=== PATIENT | male | born 1960 | race African-American/Black ===

== ENCOUNTER 2016-11-29 14:45 | Inpatient (IN) | payer MEDICARE, OTHER ==
--- NOTE | ~2016-11-29 | EKG ---
PATIENT: RACH HERNANDEZ UNIT #: [id number] Ventricular Rate: 107 BPM Atrial Rate: 107 BPM P-R Interval: 130 ms QRS Duration: 80 ms Q-T Interval: 342 ms QTC Calculation(Bezet): 456 ms P Bethel: 42 degrees Calculated R Bethel: 31 degrees Calculated T Bethel: 31 degrees Diagnosis Line: Sinus tachycardia Diagnosis Line: Minimal voltage criteria for LVH, may be normal Diagnosis Line: variant Diagnosis Line: Borderline ECG Diagnosis Line: When compared with ECG of 29-NOV-2016 19:18, Diagnosis Line: (unconfirmed) Diagnosis Line: No significant change was found Diagnosis Line: Confirmed by LEDY HAMILTON MD ([id number]) on Diagnosis Line: 11/29/2016 10:57:11 PM INTERPRETING MD: RUMA
--- NOTE | ~2016-11-29 | CR72 ---
[facility] A Service of [facility] RADIOLOGY TEXT RESULTS PATIENT: RACH HERNANDEZ LOCATION: [place] [id number] : 58 UNIT #: [id number] AGE: [address]: Jenae Sewell MD SEX: M ORDER DR: [id number] [facility] [address]. [place], [place] [address] [id number] I MR#: [id number] Acc #: [id number] NAME: RACH HERNANDEZ : 1960 SEX: M STUDY DATE/TIME: 12/01/2016 5:54 UNIT: [facility] ROOM: [facility] STUDY DESCRIPTION: CR Chest Single View Portable Attending Physician: Jenae Sewell M.D. Ordering Physician: Jenae Sewell M.D. Primary Care Physician: Primary Care Physician No MEDICAL IMAGING REPORT This report is preliminary unless electronic signature is present EXAM Portable chest, 12/01 INDICATION Left side chest pain with weakness, nausea and vomiting for 2 days. FINDINGS AP portable chest is compared with 09/26/2016. Lungs are clear. Cardiac and mediastinal contours are stable. Left side coronary stent is present. There is no pneumothorax. IMPRESSION No active disease. Dictated by... Abilio Palomo Jr., M.D. THIS IS AN ELECTRONICALLY VERIFIED REPORT Abilio Palomo Jr., M.D. at 12/01/2016 12:56 PM YADIRA/lobito TD: 12/01/2016 12:51 JOB #: [id number] MEDICAL IMAGING REPORT Page 1 of 1 COPY
--- NOTE | ~2016-11-29 | DS ---
Unit #: [id number] #: [id number] Patient: RACH HERNANDEZ [id number] [address] [address] [id number] I MR#: [id number] NAME: RACH HERNANDEZ. ROOM: 566 Age: 56 Sex: M Admission Date: 11/29/2016 : 1960 Discharge Date: 12/04/2016 Attending Physician: Jenae Sewell M.D. Primary Care Physician: No Primary Care Physician DISCHARGE SUMMARY ADMISSION DIAGNOSES 1. Gastrointestinal bleed. 2. Symptomatic anemia. 3. Chest pain. 4. End-stage renal disease on dialysis Wednesday, Wednesday, Wednesday followed by [facility]. 5. History of coronary artery disease, status post cardiac stent placement, followed by Dr. Mabry. 6. Hypertension. 7. Hyperlipidemia. 8. Diabetes. 9. Human immunodeficiency virus, followed by [facility]. 10. History of seizure. DISCHARGE DIAGNOSES 1. Mild gastritis. 2. Small hiatal hernia. 3. Multifactorial anemia. 4. End-stage renal disease on hemodialysis. 5. Coronary artery disease, status post stent and history of angioplasty on Plavix. 6. Human immunodeficiency virus. 7. Hypertension. 8. Diabetes mellitus. 9. Hyperlipidemia. 10. History of seizure. CONSULTANTS 1. Deisi Rivera M.D., Hematology. 2. Ezekiel Thompson M.D., Nephrology. 3. Leticia Banegas M.D., Cardiology. 4. Edward Biswas M.D., Pulmonary Medicine. 5. [facility]. PROCEDURES 1. EGD with finding of small hiatal hernia and mild gastritis. 2. Colonoscopy: Normal colon to the cecum. 3. Hemodialysis per order of nephrology on November 30, 2016 and December 03, 2016. CONDITION Stable. Unit #: [id number] #: [id number] Patient: RACH HERNANDEZ DISPOSITION Home. DIAGNOSTIC STUDIES LABORATORY: WBC 7.1, hemoglobin 8.2, hematocrit 25.6, platelets 307,000. Sodium 137, potassium 4, chloride 107, CO2 of 27, glucose 182, BUN 36, creatinine 6.8, calcium 8.2. Phosphorous 4.4, magnesium 2.4. HIV RNA less than 20. Hepatitis B surface antigen negative. B12 of 746, ferritin 249. PSA 0.53. Troponin I less than 0.03. Hemoglobin A1c 8.3. IMAGING: Abdominal ultrasound: Impression - cholelithiasis. Portable chest x-ray: Impression - no active disease. DISCHARGE INSTRUCTIONS 1. A 2 g renal diet. 2. Patient is to follow up with Dr. Yogi Mabry in two to three weeks. The patient will need to call and schedule an appointment. 3. Patient is to call and schedule followup appointments with Dr. Thompson, [facility]. Is to keep his regularly scheduled followup appointment at the [facility] for HIV evaluation and management. Patient is also to call and schedule a followup appointment with his primary care physician to be seen in five to seven days. The patient is to follow up with [facility] for hemodialysis on his next scheduled hemodialysis day with hemodialysis orders per Dr. Thompson. DISCHARGE MEDICATIONS 1. Neurontin 100 mg p.o. at bedtime. 2. Zyrtec 10 mg p.o. daily. 3. Diphenhydramine 50 mg p.o. at bedtime. 4. Lidoderm 5% patch two patches topically one to the right hip and one to the right buttock, on for 12 hours and remove for 12 hours. 5. Intelence 200 mg p.o. b.i.d. with breakfast and lunch. 6. Abacavir 300 mg p.o. b.i.d. 7. Epivir 100 mg p.o. daily. 8. BuSpar 7.5 mg p.o. b.i.d. 9. Coreg 25 mg p.o. b.i.d. 10. Amlodipine besylate 10 mg p.o. daily. 11. Crestor 20 mg p.o. daily. 12. Humalog insulin per home sliding scale insulin orders. 13. Lantus 10 units subcutaneous at bedtime. 14. Myfortic 360 mg p.o. b.i.d. 15. Renagel 1600 mg p.o. b.i.d. 16. Aspirin 81 mg p.o. every 24 hours. 17. Plavix 75 mg p.o. daily. 18. Protonix 40 mg p.o. daily. 19. Nephrocaps one p.o. daily. 20. Ascorbic acid 500 mg p.o. daily. 21. Rocaltrol 0.25 mcg p.o. daily. 22. Vitamin D2 at 50,000 units p.o. weekly on Wednesday. HOSPITAL COURSE The patient is a 56-year-old -[place] male who presented to [facility] for evaluation of nausea, vomiting, and diarrhea. Given the patient's past medical history, profound anemia, and suspicion for GI bleed, he was transferred to [facility] and transfused with packed red blood cells. Please refer to Unit #: [id number] #: [id number] Patient: RACH HERNANDEZ history and physical report for complete details. Management of end-stage renal disease: Dr. Thompson was consulted for nephrology and hemodialysis management. Patient was noted to be receiving dialysis at home three times weekly. Hemodialysis orders were written by Dr. Thompson and patient was followed by him throughout the hospital course. Patient's last hemodialysis was December 03, 2016. Per order of Dr. Thompson, if patient is discharged home, his next dialysis should follow his December 02, 2016 dialysis orders. Anemia: The patient underwent EGD and colonoscopy with results as dictated above. There was no evidence of GI bleed on neither EGD nor colonoscopy. The patient's anemia was determined to be multifactorial. Hematology was consulted for evaluation and management of the same. Per review of Dr. Rivera's consultation note, the patient would be given Procrit. He also received Ferrlecit 250 mg IV daily for three days. The patient's B12 was evaluated and found to be normal range at 746. At this time, this patient is stable from a hematologic standpoint and has been cleared for discharge without recommendation for followup with Dr. Rivera at this time. Patient will follow with his established physicians for further evaluation of anemia. Type 2 diabetes mellitus: Uncontrolled. Patient developed hyperglycemia and ultimately required treatment with a non DKA insulin protocol. Patient's blood sugar has returned to acceptable range. The patient will be discharged home on his home insulin regimen with the exception of a decrease in Lantus dose from 20 units subcutaneous at bedtime to 10 units subcutaneous at bedtime. The patient will resume his home Humalog insulin sliding scale orders. The patient is eating and drinking well at this time. Coronary artery disease, status post stent placement on Plavix: The patient was evaluated by cardiology given his history of recent drug-eluting stent. The patient's Brilinta was placed on hold because of severe anemia. Patient was placed on low-dose aspirin which he continued to receive. Patient was ultimately transitioned to Plavix and Brilinta was completely discontinued. The patient has been given a prescription prior to discharge for Plavix. Patient is stable from a cardiac standpoint and has been cleared for discharge with instructions to follow up with his wheat shipper, Dr. Yogi Mabry, in two to three weeks. Mild gastritis with small hiatal hernia: The patient's EGD findings are as dictated above. Patient will be discharged home on renal dose of proton pump inhibitor and the patient has been given a prescription for this as well. He will follow up with his primary care physician in this regard. HIV: The patient is established with the [facility] for HIV monitoring and evaluation as well as medication management. HIV RNA count returned as dictated above. CD4 count has been sent to the reference lab and is pending at this time. Again, the patient is aware and is established at the [facility]. In summary, the patient is awake, alert, oriented x3, tolerating food and fluids well and blood sugar as well as (1) are stable at this time. He has been evaluated by Dr. Johnson of the hospitalist service as the patient's attending physician. The patient has been discharged home with discharge and followup instructions as dictated above. Unit #: [id number] #: [id number] Patient: RACH HERNANDEZ Dictated by... Sheela Brandt A.P.R.N. for Winston Covarrubias/fletcher TD: 12/08/2016 12:53 JOB #: [id number] DISCHARGE SUMMARY Page 1 of 1 X Sheela Brandt APRN X DISCHARGE SUMMARY
--- NOTE | ~2016-11-29 | CO ---
Unit #: [id number] #: [id number] Patient: RACH HERNANDEZ [id number] [address] [place], [place] [address] [id number] I MR#: [id number] NAME: RACH HERNANDEZ. ROOM: [facility] Age: 56 Sex: M Admission Date: 11/29/2016 : 1960 Attending Physician: Jenae Sewell M.D. Primary Care Physician: Kayli Primary Care Physician Consultation Date: 11/30/2016 CONSULTATION REPORT REASON FOR CONSULT Management of end-stage renal disease. HISTORY OF PRESENT ILLNESS Mr. Hernandez is a 56-year-old gentleman well known to our service with a failed kidney transplant and progression to end-stage renal disease currently on home hemodialysis. The patient reports that he was in good shape until earlier this week when he began to experience increasing weakness to the point where he had difficulty walking. On Wednesday, he began to experience an episode of vomiting and had several episodes of vomiting on both Wednesday and Wednesday which, combined with the severe weakness, prompted him to present to the emergency room. There, he was found to have a severely low hemoglobin, prompting admission to the ICU with transfusions. On questioning, the patient reports a history of chronic anemia as well as a history of chronic reflux disease and multiple EGDs in the past along with esophageal stretching. It appears that he underwent a procedure in June of this year with reports of mild esophagitis. It appears he underwent another EGD in August of this year at [facility] with largely unremarkable findings except for benign appearing esophageal stenosis. Of note, also in August, he underwent coronary stenting and was placed on Brilinta. The patient notes he has had several occasions where he has awoken to find blood clots in his bowels in the morning. Except for the presentation episodes of vomiting, he reports he has not been having intermittent vomiting at home. He also denies lower GI disorders including diarrhea. He has had dark stools which he has been attributing to the iron replacement he has been taking. It should be noted that he had a hemoglobin of 9.4 at the dialysis unit earlier this month. 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 He underwent a kidney transplant which failed earlier this year putting him back on hemodialysis. PAST MEDICAL HISTORY Extensive and notable for his FFGS, renal failure and dialysis as above. He also has a history of diabetes and HIV for which he is taking medications. Other issues include hyperlipidemia, hypertension and left-sided sciatica. PAST SURGICAL HISTORY Transplant as well as his recent PCIs for stenting. SOCIAL HISTORY Notable for being a recent smoker. He lives with his . Unit #: [id number] #: [id number] Patient: RACH HERNANDEZ FAMILY HISTORY Heart disease. MEDICATIONS His medication list is expensive and is detailed in his medication list. It appears at the moment his Brilinta has not been restarted. PHYSICAL EXAMINATION GENERAL APPEARANCE: On exam, he looked comfortable, lying mostly supine. He was awake, alert and quite conversant. VITAL SIGNS: At the time of evaluation, the patient's blood pressure was 165/87 and a pulse of 92. His temperature was 98.4 with a T-max of 99.3. His O2 sats were 100%. HEENT: Head was normocephalic and atraumatic. Pupils were equally reactive. Sclerae and conjunctivae were clear. There was no evidence of jaundice. NECK: Supple without adenopathy. There was no jugular venous distention. CHEST: Appeared clear to auscultation. No rales or rhonchi were noted. HEART: Regular rate with a normal S1 and S2. There was a prominent 2/6 systolic ejection murmur heard over the precordium. Additionally, there was an overlay bruit from his vascular access in his left arm. ABDOMEN: Soft. There was an area in his right upper quadrant which he reported painful for some time. No masses or organomegaly could be defined, however. No guarding or rebound was noted. GENITORECTAL: Exam was deferred. EXTREMITIES: No dependent edema. There was no cyanosis or clubbing. No significant joint deformities or effusions were noted. No skin lesions were noted. DIAGNOSTIC STUDIES LABORATORY: His most recent hemoglobin was 7.7 after three transfusions. His white count was 8.0 with a platelet count of 256,000. An INR was 1.1. Chemistries were notable for a sodium of 128 with a potassium of 4.8 and a calcium of 8.1. His albumin was low at 3.1. His blood sugars were quite high and in the six hundreds. Transaminases were normal and his total bilirubin was less than 0.1. IMPRESSION 1. His hemoglobin has dropped approximately 5 g over the course of this month. He has undergone several transfusions and may need additional transfusions going forward. A clear etiology is not currently evident and it appears recent EGDs were not revealing either. In addition to the usual considerations of gastric or esophageal ulcerative lesions would be telangiectasias throughout his GI tract. These may have been exacerbated by the addition of an anticoagulant. He is currently being followed by Surgery and there has been some discussion of pursuing another EGD. 2. End-stage renal disease. The patient, at home, has been running relatively short dialysis treatments three times a week given his residual renal function from his transplant. His sodium is a bit low but is otherwise (1) not particularly remarkable. We may go ahead and pursue dialysis today to clear the schedule tomorrow for any other interventional procedures that might be necessary. 3. Diabetes mellitus. It is noticed blood sugar control has been very poor. This is being addressed by Dr. Flores. 4. HIV. He has been on medications for this. I do not know who he sees for overall management. Unit #: [id number] #: [id number] Patient: RACH HERNANDEZ Dictated by... Ezekiel Thompson M.D. SAY/michelle TD: 12/01/2016 06:58 JOB #: [id number] CONSULTATION REPORT Page 1 of 1 X Ezekiel Thompson Jr, MD X CONSULTATION REPORT
--- NOTE | ~2016-11-29 | OR ---
Unit #: [id number] #: [id number] Patient: RACH HERNANDEZ [id number] [address] [address] [id number] I MR#: [id number] NAME: RACH HERNANDEZ. ROOM: 566 Date of Procedure: 12/03/2016 Admission Date: 11/29/2016 Surgeon: Juice Espinal M.D. : 1960 Attending Physician: Jenae Sewell M.D. Primary Care Physician: Primary Care Physician No OPERATIVE REPORT PREOPERATIVE DIAGNOSES 1. Anemia. 2. Heme-positive stools. POSTOPERATIVE DIAGNOSES 1. Anemia. 2. Heme-positive stools. PROCEDURES PERFORMED 1. Esophagogastroduodenoscopy. 2. Colonoscopy to cecum. ANESTHESIA Monitored anesthesia care. FINDINGS The patient was found on upper endoscopy to have a small hiatal hernia and mild gastritis. On colonoscopy, the patient was found to have normal colon to the cecum. SPECIMENS None. COMPLICATIONS None apparent. CONDITION The patient tolerated the procedure well. INDICATIONS FOR PROCEDURE The patient is a 56-year-old black male, who has a history of renal insufficiency and is on dialysis. He was found to have significant anemia and heme-positive stools. He presents at this time for evaluation by upper and lower endoscopy. DESCRIPTION OF PROCEDURE After obtaining informed consent, the patient was brought to the endoscopy suite and after adequate monitored anesthesia care, had the endoscope placed through the mouth into the upper esophagus under direct vision. It was advanced to the second portion of the duodenum without difficulty with the lumen always in view. The duodenum was normal as was the duodenal bulb. The pylorus opened normally. There was some mild distal gastritis Unit #: [id number] #: [id number] Patient: RACH HERNANDEZ present. On retroflexion back to the GE junction, a small hiatal hernia was seen. No other abnormalities were found in the proximal third, middle third, or incisura. On pulling back above the GE junction, there was no stenosis, stricture, or neoplasm seen. The remaining portion of the esophagus was within normal limits. Laryngeal structures were grossly normal as viewed from above. At this point in time, the colonoscope was placed through the anus and slowly advanced to the level of the cecum without difficulty with the lumen always in view. There was quite a bit of brown thick liquid; however, with washing, we were able to clear out the vast majority of the colon. The cecum was normal as was the ileocecal valve. The ascending colon was normal as was the hepatic flexure, transverse colon, splenic flexure, descending colon, sigmoid colon, and rectum. On retroflexing in the rectum to the anorectal junction, the patient was found to have no significant abnormality. The scope was removed without difficulty. The patient tolerated the procedure well and went from the endoscopy suite to the recovery area in stable condition. Dictated by... Winston Whalen/richard TD: 12/04/2016 02:49 JOB #: [id number] CC: [facility] OPERATIVE REPORT Page 1 of 1 X Juice Espinal MD X PROCEDURE OPERATIVE NOTE
--- NOTE | ~2016-11-29 | CO ---
Unit #: [id number] #: [id number] Patient: RACH HERNANDEZ [id number] [address] [address] [id number] I MR#: [id number] NAME: RACH HERNANDEZ. [facility] Age: 56 Sex: M Admission Date: 11/29/2016 : 1960 Attending Physician: Jenae Sewell M.D. Primary Care Physician: No Primary Care Physician CONSULTATION REPORT CHIEF COMPLAINT Anemia on dialysis, focal segmental glomerulosclerosis and multiple medical problems. HISTORY OF PRESENT ILLNESS This is a 56-year-old male who developed end-stage renal disease during 2001 secondary to FSGS. He has a renal transplant. He is now back on dialysis. Last couple of days he has nausea and vomiting symptoms, presyncope and his hemoglobin is low. As a result he came to hospital. CBC showed WBC 8.0, hemoglobin 6.2, MCV 85 and platelets 256. He has received four units of PRBCs. At present he still is receiving. Patient has FSGS leading to multiple complications. Now he has a rejection of his renal transplant. At present he is comfortable. He received intravenous iron and Aranesp during dialysis. The last (1) Wednesday. REVIEW OF SYSTEMS CONSTITUTIONAL: Presyncope, nausea, vomiting. EYES: No visual symptoms. EARS, NOSE AND THROAT: There is no runny nose or sore throat or difficulty hearing. CARDIOVASCULAR: No chest pain. No shortness of breath. No palpitations. No orthopnea. No PND. RESPIRATORY: No cough. No wheezing. No hemoptysis. GASTROINTESTINAL: No diarrhea, constipation, hematochezia or melena. GENITOURINARY: No urinary frequency, hesitancy or urgency. No blood in the urine. MUSCULOSKELETAL: No muscle or joint pain. NEUROLOGIC: No headache. No numbness or tingling. No weakness. No seizure. PSYCHIATRIC: No anxiety, depression or mood disturbance. ENDOCRINE: No excessive urination or thirst. DERMATOLOGIC: No rash or change in the skin. ALLERGIC/IMMUNOLOGIC: No symptoms. HEMATOLOGIC/LYMPHATIC: Denies any symptoms. PAST MEDICAL HISTORY Unit #: [id number] #: [id number] Patient: RACH HERNANDEZ 1. FSGS. 2. Renal transplant failure, now back on dialysis. 3. HIV, stable. 4. CAD. 5. Stent. ALLERGIES None. SOCIAL HISTORY He has been smoking one pack per week for 40 years, denies alcohol abuse. He works at the [employer]. FAMILY HISTORY Multiple members of the family from grandmother on father's side have FSGS. His daughter at the age of 25 with this disease. PAST SURGICAL HISTORY Bilateral hip replacement because of the immunosuppressant. PHYSICAL EXAMINATION VITAL SIGNS: Afebrile, pulse 95, respiratory rate 15, O2 sat 100%, blood pressure 160/80. GENERAL: Patient is comfortable. ECOG is 0. The patient is pleasant. HEENT: Moist mucosa. Pupils equally reactive to light. Extraocular muscles intact. Sclerae anicteric. No obvious bleeding from nasal mucosa or oral mucosa. Scalp normal. Hearing normal. NECK: No JVD. No lymphadenopathy. LYMPHATIC/HEMATOLOGIC: There is no palpable adenopathy in the neck, axilla or inguinal area. CARDIOVASCULAR: S1, S2. Regular rate and rhythm. No S3 or S4. RESPIRATORY: Chest symmetrical, normal. Clear to auscultation bilaterally. No wheezes, no rales, no rhonchi. No dullness to percussion. ABDOMEN/GASTROINTESTINAL: Abdomen is soft, nontender, nondistended. No hepatosplenomegaly. EXTREMITIES: There is no clubbing, no cyanosis, no edema. No varicose veins. NEUROLOGICAL: Patient is alert, awake and oriented x3. Cranial nerves II-XII are intact. Sensory grossly intact. Motor is 4/5 in all four extremities. Gait is normal. Station is normal. Language is normal. Memory is normal. DTRs +2 in all four extremities. MUSCULOSKELETAL: No joint swelling. No bony tenderness. No muscle tenderness. SKIN: No petechiae, no rash, no ecchymosis. PSYCHIATRIC: No anxiety. No delusions or hallucinations. There is no agitation. Eye contact is normal. Affect is appropriate. There is no flight of ideas. DIAGNOSTIC STUDIES LABORATORY: Creatinine is 6.4, LFTs normal. ASSESSMENT AND PLAN 1. Anemia, it is multifactorial in nature. He is on dialysis due to transplant failure. He also is on immunosuppressive agent. He is receiving PRBC transfusion. I will give him a dose of Procrit. Will check iron studies and B12. 2. Other conditions he has: a. Focal segmental glomerulosclerosis. Unit #: [id number] #: [id number] Patient: RACH HERNANDEZ b. Renal failure. c. Renal transplant, now transplant failure. d. Human immunodeficiency virus. e. Coronary artery disease. f. Stent. g. Diabetes. h. Hypertension. All of these are stable. He is comfortable. I will follow up with multiple physicians. Dictated by... Deisi Rivera M.D. RAGHAV/asia TD: 11/30/2016 16:43 JOB #: [id number] CONSULTATION REPORT Page 1 of 1 X Deisi Rivera MD X CONSULTATION REPORT
--- NOTE | ~2016-11-29 | HP ---
Unit #: [id number] #: [id number] Patient: RACH HERNANDEZ [id number] [address] [address] [id number] I MR#: [id number] NAME: RACH HERNANDEZ. ROOM: [facility] Age: 56 Sex: M Admission Date: 11/29/2016 : 1960 Attending Physician: Letty Flores M.D. HISTORY AND PHYSICAL CHIEF COMPLAINT Nausea, vomiting, diarrhea. HISTORY OF PRESENT ILLNESS The patient is a 56-year-old male with a past medical history of chronic anemia, end-stage renal disease, coronary artery disease, hypertension, hyperlipidemia, diabetes, HIV, and seizure, who presented to [facility] for evaluation of the above. The patient states that he has been feeling increasingly generally weak for the past week. He has felt like he would "pass out." He states that he has had left-sided chest pain. He has had upper abdominal pain intermittently. He denies any diarrhea. He has had three bouts of nonbloody emesis within the past 24 hours. He is on home dialysis. He typically does dialysis on Wednesday, Wednesday, and Wednesday. His last dialysis was yesterday. Upon arrival in the emergency department at [facility], initial pulse and blood pressure were 117 and 126/78, respectively. He was noted to be Hemoccult positive. A CT of the abdomen and pelvis was done and showed cholelithiasis, uncomplicated, but no acute abnormality. Hemoglobin was noted to be 4.8, creatinine 5.7, and potassium 3.5. He was given 40 mg of Protonix, 4 mg of Zofran, and 4 mg of morphine. One unit of packed red blood cells was ordered. He was transferred to [facility] for admission. PAST MEDICAL HISTORY 1. Admission to [facility] in September 2016 (no records). 2. End-stage renal disease, on dialysis. The patient receives home dialysis Wednesday/Wednesday/Wednesday. His last dialysis was yesterday. He is followed by [facility]. 3. Anxiety and depression. 4. Coronary artery disease, status post stent placement, followed by Dr. Mabry. 5. Chronic anemia. The patient receives iron infusions with the last infusion being on November 23, 2016. 6. Diabetes. 7. Hyperlipidemia. 8. Hypertension. 9. Human immunodeficiency virus. The patient states that his viral load is undetectable. He is not sure what his CD4 count is. He has been taking all of his medications as prescribed. He is followed by [facility]. 10. Seizure. The patient is not on antiepileptic medications, and he is Unit #: [id number] #: [id number] Patient: RACH HERNANDEZ not followed by a neurologist. PAST SURGICAL HISTORY 1. Bilateral hip surgery. 2. EGD and colonoscopy in [place] at [facility]. 3. Cardiac catheterization. 4. Cardiac stent placement. 5. Fistula for dialysis. SOCIAL HISTORY The patient lives with his . He does not smoke or drink. He walks without assistance. His code status is a Full Code. FAMILY HISTORY Notable for his brother having end-stage renal disease, and his mother has diabetes. ALLERGIES Penicillin and sulfa. HOME MEDICATIONS 1. Amlodipine 10 mg daily. 2. Humalog sliding scale. 3. Intelence 200 mg b.i.d. 4. Lantus 20 units at bedtime. 5. Lidoderm patch. 6. Renal caps daily. 7. Vitamin C 500 mg daily. 8. Vitamin D 50,000 units weekly. 9. Zyrtec 10 mg daily. 10. Abacavir 300 mg b.i.d. 11. Aspirin 81 mg daily. 12. Buspirone 7.5 mg b.i.d. 13. Calcitriol 0.25 mcg daily. 14. Carvedilol 25 mg b.i.d. 15. Diphenhydramine 25 mg 2 capsules at bedtime. 16. Gabapentin 100 mg daily. 17. Lamivudine 100 mg daily. 18. Mycophenolic acid 360 mg b.i.d. 19. Rosuvastatin 10 mg daily. 20. Sevelamer 1600 mg b.i.d. REVIEW OF SYSTEMS A complete review of systems is negative except as indicated in the History of Present Illness. The patient states that he has lost about 18 pounds over the past three months. The patient states that his blood sugars have been running high (undetectable). PHYSICAL EXAMINATION VITAL SIGNS: Temperature 99.3, pulse 112, respirations 10, and blood pressure 176/83. GENERAL: Patient is an male who is awake, alert, and in no acute distress. HEENT: Head is atraumatic. Mucous membranes are moist. NECK: Supple. Trachea is midline. CARDIOVASCULAR: Regular rate and rhythm. LUNGS: Clear to auscultation bilaterally with no increased work of breathing. Unit #: [id number] #: [id number] Patient: RACH HERNANDEZ ABDOMEN: Soft. He is mildly tender to palpation in the epigastric area. Bowel sounds are present in all four quadrants. EXTREMITIES: Nontender with no pedal edema. NEUROLOGIC: Patient is awake and alert. He follows commands. PSYCHIATRIC: Mood and affect are normal. Patient is cooperative. SKIN: Skin of examined areas is warm and dry. DIAGNOSTIC STUDIES LABORATORY: Troponin is 0.02. Comprehensive metabolic panel notable for glucose of 116, potassium 3.5, and BUN and creatinine 48 and 5.74, respectively. Amylase is 145 and lipase 81. Complete blood count notable for hemoglobin and hematocrit 4.8 and 14.4, respectively, MCV is 85.3, and RDW 15.3. IMAGING: CT of the abdomen and pelvis shows uncomplicated cholelithiasis and renal transplant in the right pelvis. CARDIOLOGY: EKG shows sinus tachycardia with a rate of 111 beats per minute. ASSESSMENT The patient is a 56-year-old male with: 1. Gastrointestinal bleed. The patient states that he has had endoscopy in [place] within the past year, and they have "never found a source." 2. Symptomatic anemia. The patient's hemoglobin was 4.8. He is currently receiving the first unit of packed red blood cells. 3. Chest pain. The patient has a history of coronary artery disease and is status post stent placement. Initial cardiac enzymes are negative. 4. End-stage renal disease, on home dialysis Wednesday, Wednesday, and Wednesday with last dialysis yesterday, followed by [facility]. 5. History of coronary artery disease, status post cardiac stent placement, followed by Dr. Mabry. 6. Hypertension. 7. Hyperlipidemia. 8. Diabetes. 9. Human immunodeficiency virus followed by [facility]. 10. History of seizure. PLAN 1. Admit to ICU. 2. Clear liquid diet for possible endoscopy. 3. N.p.o. after midnight. 4. Hemoglobin and hematocrit one hour after transfusion and q.6 hours. 5. Iron studies, B12, and folate. 6. Get records from [facility] and from [facility] if possible including endoscopy. 7. Serial cardiac enzymes. 8. Protonix drip at 8 mg/hour. 9. Hold aspirin. 10. Check right upper quadrant ultrasound for further evaluation of right upper quadrant pain and cholelithiasis. 11. P.remily Smith. 12. Consult Dr. Hodge regarding GI bleed. 13. Consult [facility] regarding end-stage renal disease and dialysis needs. Unit #: [id number] #: [id number] Patient: RACH HERNANDEZ 14. Hemoglobin A1c. 15. Low-dose sliding scale insulin with Accu-Cheks. 16. SCDs for DVT prophylaxis. 17. Repeat labs in the morning. 18. Additional workup and consultants based on above. Thirty (30) minutes critical care time spent in the care of this patient (7:30-8:00 p.m.). Dictated by Letty Flores M.D. AW/vale TD: 11/29/2016 20:54 JOB #: [id number] HISTORY AND PHYSICAL Page 1 of 1 X Letty Flores MD X HISTORY AND PHYSICAL
--- NOTE | ~2016-11-29 | HP ---
Unit #: [id number] #: [id number] Patient: RACH HERNANDEZ [id number] [address] [address] [id number] I MR#: [id number] NAME: RACH HERNANDEZ. ROOM: [facility] Age: 56 Sex: M Admission Date: 11/29/2016 : 1960 Attending Physician: Letty Flores M.D. HISTORY AND PHYSICAL CHIEF COMPLAINT Nausea, vomiting, diarrhea. HISTORY OF PRESENT ILLNESS The patient is a 56-year-old male with a past medical history of chronic anemia, end-stage renal disease, coronary artery disease, hypertension, hyperlipidemia, diabetes, HIV, and seizure, who presented to [facility] for evaluation of the above. The patient states that he has been feeling increasingly generally weak for the past week. He has felt like he would "pass out." He states that he has had left-sided chest pain. He has had upper abdominal pain intermittently. He denies any diarrhea. He has had three bouts of nonbloody emesis within the past 24 hours. He is on home dialysis. He typically does dialysis on Wednesday, Wednesday, and Wednesday. His last dialysis was yesterday. Upon arrival in the emergency department at [facility], initial pulse and blood pressure were 117 and 126/78, respectively. He was noted to be Hemoccult positive. A CT of the abdomen and pelvis was done and showed cholelithiasis, uncomplicated, but no acute abnormality. Hemoglobin was noted to be 4.8, creatinine 5.7, and potassium 3.5. He was given 40 mg of Protonix, 4 mg of Zofran, and 4 mg of morphine. One unit of packed red blood cells was ordered. He was transferred to [facility] for admission. PAST MEDICAL HISTORY 1. Admission to [facility] in September 2016 (no records). 2. End-stage renal disease, on dialysis. The patient receives home dialysis Wednesday/Wednesday/Wednesday. His last dialysis was yesterday. He is followed by [facility]. 3. Anxiety and depression. 4. Coronary artery disease, status post stent placement, followed by Dr. Mabry. 5. Chronic anemia. The patient receives iron infusions with the last infusion being on November 23, 2016. 6. Diabetes. 7. Hyperlipidemia. 8. Hypertension. 9. Human immunodeficiency virus. The patient states that his viral load is undetectable. He is not sure what his CD4 count is. He has been taking all of his medications as prescribed. He is followed by [facility]. 10. Seizure. The patient is not on antiepileptic medications, and he is Unit #: [id number] #: [id number] Patient: RACH HERNANDEZ not followed by a neurologist. PAST SURGICAL HISTORY 1. Bilateral hip surgery. 2. EGD and colonoscopy in [place] at [facility]. 3. Cardiac catheterization. 4. Cardiac stent placement. 5. Fistula for dialysis. SOCIAL HISTORY The patient lives with his . He does not smoke or drink. He walks without assistance. His code status is a Full Code. FAMILY HISTORY Notable for his brother having end-stage renal disease, and his mother has diabetes. ALLERGIES Penicillin and sulfa. HOME MEDICATIONS 1. Amlodipine 10 mg daily. 2. Humalog sliding scale. 3. Intelence 200 mg b.i.d. 4. Lantus 20 units at bedtime. 5. Lidoderm patch. 6. Renal caps daily. 7. Vitamin C 500 mg daily. 8. Vitamin D 50,000 units weekly. 9. Zyrtec 10 mg daily. 10. Abacavir 300 mg b.i.d. 11. Aspirin 81 mg daily. 12. Buspirone 7.5 mg b.i.d. 13. Calcitriol 0.25 mcg daily. 14. Carvedilol 25 mg b.i.d. 15. Diphenhydramine 25 mg 2 capsules at bedtime. 16. Gabapentin 100 mg daily. 17. Lamivudine 100 mg daily. 18. Mycophenolic acid 360 mg b.i.d. 19. Rosuvastatin 10 mg daily. 20. Sevelamer 1600 mg b.i.d. REVIEW OF SYSTEMS A complete review of systems is negative except as indicated in the History of Present Illness. The patient states that he has lost about 18 pounds over the past three months. The patient states that his blood sugars have been running high (undetectable). PHYSICAL EXAMINATION VITAL SIGNS: Temperature 99.3, pulse 112, respirations 10, and blood pressure 176/83. GENERAL: Patient is an male who is awake, alert, and in no acute distress. HEENT: Head is atraumatic. Mucous membranes are moist. NECK: Supple. Trachea is midline. CARDIOVASCULAR: Regular rate and rhythm. LUNGS: Clear to auscultation bilaterally with no increased work of breathing. Unit #: [id number] #: [id number] Patient: RACH HERNANDEZ ABDOMEN: Soft. He is mildly tender to palpation in the epigastric area. Bowel sounds are present in all four quadrants. EXTREMITIES: Nontender with no pedal edema. NEUROLOGIC: Patient is awake and alert. He follows commands. PSYCHIATRIC: Mood and affect are normal. Patient is cooperative. SKIN: Skin of examined areas is warm and dry. DIAGNOSTIC STUDIES LABORATORY: Troponin is 0.02. Comprehensive metabolic panel notable for glucose of 116, potassium 3.5, and BUN and creatinine 48 and 5.74, respectively. Amylase is 145 and lipase 81. Complete blood count notable for hemoglobin and hematocrit 4.8 and 14.4, respectively, MCV is 85.3, and RDW 15.3. IMAGING: CT of the abdomen and pelvis shows uncomplicated cholelithiasis and renal transplant in the right pelvis. CARDIOLOGY: EKG shows sinus tachycardia with a rate of 111 beats per minute. ASSESSMENT The patient is a 56-year-old male with: 1. Gastrointestinal bleed. The patient states that he has had endoscopy in [place] within the past year, and they have "never found a source." 2. Symptomatic anemia. The patient's hemoglobin was 4.8. He is currently receiving the first unit of packed red blood cells. 3. Chest pain. The patient has a history of coronary artery disease and is status post stent placement. Initial cardiac enzymes are negative. 4. End-stage renal disease, on home dialysis Wednesday, Wednesday, and Wednesday with last dialysis yesterday, followed by [facility]. 5. History of coronary artery disease, status post cardiac stent placement, followed by Dr. Mabry. 6. Hypertension. 7. Hyperlipidemia. 8. Diabetes. 9. Human immunodeficiency virus followed by [facility]. 10. History of seizure. PLAN 1. Admit to ICU. 2. Clear liquid diet for possible endoscopy. 3. N.p.o. after midnight. 4. Hemoglobin and hematocrit one hour after transfusion and q.6 hours. 5. Iron studies, B12, and folate. 6. Get records from [facility] and from [facility] if possible including endoscopy. 7. Serial cardiac enzymes. 8. Protonix drip at 8 mg/hour. 9. Hold aspirin. 10. Check right upper quadrant ultrasound for further evaluation of right upper quadrant pain and cholelithiasis. 11. P.remily Smith. 12. Consult Dr. Hodge regarding GI bleed. 13. Consult [facility] regarding end-stage renal disease and dialysis needs. Unit #: [id number] #: [id number] Patient: RACH HERNANDEZ 14. Hemoglobin A1c. 15. Low-dose sliding scale insulin with Accu-Cheks. 16. SCDs for DVT prophylaxis. 17. Repeat labs in the morning. 18. Additional workup and consultants based on above. Thirty (30) minutes critical care time spent in the care of this patient (7:30-8:00 p.m.). Dictated by... Winston Stanford/vale TD: 11/29/2016 20:54 JOB #: [id number] ADDENDUM PAST MEDICAL HISTORY (CONTINUED) 2. 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 He is still on immunosuppression with mycophenolic acid. PAST SURGICAL HISTORY (CONTINUED) 6. Patient is status post kidney transplant. PLAN (CONTINUED) 19. Will check HIV and viral load. 20. 1. Dictated by Winston Stanford/vale TD: 11/29/2016 21:26 JOB #: [id number] CC: [place]/invision Please Delete HISTORY AND PHYSICAL Page 1 of 1 X Letty Flores MD HISTORY AND PHYSICAL
--- NOTE | ~2016-11-29 | EKG ---
PATIENT: RACH HERNANDEZ UNIT #: [id number] Ventricular Rate: 96 BPM Atrial Rate: 96 BPM P-R Interval: 150 ms QRS Duration: 98 ms Q-T Interval: 358 ms QTC Calculation(Bezet): 452 ms P Billings: 53 degrees Calculated R Billings: 44 degrees Calculated T Billings: 54 degrees Diagnosis Line: Normal sinus rhythm Diagnosis Line: Moderate voltage criteria for LVH, may be normal Diagnosis Line: variant Diagnosis Line: Borderline ECG Diagnosis Line: When compared with ECG of 29-NOV-2016 19:20, Diagnosis Line: No significant change was found Diagnosis Line: Confirmed by LEDY HAMILTON MD ([id number]) on Diagnosis Line: 12/02/2016 10:49:03 AM INTERPRETING ROZ HENDRIX
--- NOTE | ~2016-11-29 | CO ---
Unit #: [id number] #: [id number] Patient: RACH HERNANDEZ [id number] [address] [place], [place] [address] [id number] I MR#: [id number] NAME: RACH HERNANDEZ. ROOM: 566 Age: 56 Sex: M Admission Date: 11/29/2016 : 1960 Attending Physician: Jenae Sewell M.D. Consultation Date: 12/02/2016 CONSULTATION REPORT REASON FOR CONSULT ICU management. CHIEF COMPLAINT Nausea, vomiting, and diarrhea. HISTORY OF PRESENT ILLNESS This is a very pleasant 56-year-old gentleman with a past medical history significant for chronic anemia, end-stage renal disease, coronary artery disease, hypertension, hyperlipidemia, HIV, and seizure, who presented to the emergency room with nausea, vomiting, and diarrhea. Patient complained that he was feeling profoundly and progressively weak for the last few days. He had a presyncopal episode and almost passed out. He also was complaining of chest pain and shortness of breath. Patient also noted that he had multiple bouts of nonbloody emesis prior to admission. He is on dialysis three times a week, and he is being compliant with that. In the emergency room, his heart rate was elevated, and his hemoglobin was noted to be at 4.8. PAST MEDICAL HISTORY 1. End-stage renal disease. 2. Anxiety. 3. Depression. 4. Coronary artery disease. 5. Chronic anemia. 6. Diabetes. 7. Hyperlipidemia. 8. Hypertension. 9. Human immunodeficiency virus. 10. Seizure. PAST SURGICAL HISTORY 1. Bilateral hip surgery. 2. EGD and colonoscopy. 3. Cardiac catheterization. 4. Cardiac stent placement. 5. Fistula for dialysis. SOCIAL HISTORY Patient lives with his . He does not smoke or drink. He walks without assistance. His code status is Full. Unit #: [id number] #: [id number] Patient: RACH HERNANDEZ FAMILY HISTORY End-stage renal disease, diabetes, and hypertension. ALLERGIES Penicillin and sulfa. HOME MEDICATIONS 1. Norvasc. 2. Lantus. 3. Vitamin C. 4. Aspirin. 5. Buspirone. 6. Human immunodeficiency virus treatment. 7. Rosuvastatin. REVIEW OF SYSTEMS A 12-point review of systems was obtained and was negative except for what was mentioned in the History of Present Illness. PHYSICAL EXAMINATION GENERAL: Patient does not appear in acute distress, but he looks weak and fatigued. HEENT: Atraumatic and normocephalic. PERRLA. EOMI. NECK: Supple. No JVD. No lymphadenopathy. CHEST: Clear to auscultation bilaterally. HEART: S1 and S2. No murmur, gallops, or rubs. ABDOMEN: Soft and nontender. Bowel sounds positive. No hepatosplenomegaly. EXTREMITIES: No edema or cyanosis. SKIN: No rashes. CENTRAL NERVOUS SYSTEM: Awake, alert, and oriented x3. No focal motor or sensory deficits. DIAGNOSTIC STUDIES LABORATORY: Creatinine 6.1 and calcium 7.2. White blood count is 7.1 and platelets 230,000. IMAGING: Noted and reviewed by me. ASSESSMENT 1. Acute on chronic anemia likely due to gastrointestinal bleeding. 2. Symptomatic anemia. 3. Chest pain. 4. End-stage renal disease. 5. Hypertension. 6. Diabetes. 7. Hyperlipidemia. 8. Human immunodeficiency virus. PLAN 1. Patient was resuscitated with IV fluid and blood products. His hemoglobin currently is stable. His Plavix was restarted, and we need to monitor his hemoglobin very closely. 2. Patient will need GI evaluation at some point when he is more stable and appropriate. 3. Will watch patient off antibiotics. 4. Keep patient on Protonix. 5. Protonix drip. Unit #: [id number] #: [id number] Patient: RACH HERNANDEZ 6. Iron infusion as needed. 7. SCDs for DVT prophylaxis. I would like to thank Dr. Johnson for allowing me to be part of this patient's care. Dictated by... Winston Gonzalez TD: 12/02/2016 20:25 JOB #: [id number] CONSULTATION REPORT Page 1 of 1 X ART PRIETO MD CONSULTATION REPORT
--- NOTE | ~2016-11-29 | FU ---
[facility] Nutrition Therapy DATE: 12/04/16 Patient: RACH HERNANDEZ Physician: CHRISSY Address: [address] [place] [address] RD Room/Bed: [address] [place] [address], Zip: [place] [address] Admit Date: 11/29/16 Date of : 58 Height: 6 1 Weight: 172 78.2 NUTRITION MONITORING/FOLLOW-UP: Reason: follow-up 56 y/o male admitted for anemia, n/v/d Anthropometrics: ht: 6'1" wt: 172# (78.2 kg) BMI 22 -Admit weight 72.7 kg Labs: BUN 36, Creat 6.8, Ca__ 8.2, Alb 3.3, accuchecks 182, HgbA1c 8.3, GFR 9.5 Meds: protonix, plavix, lipitor, novolog, levemir, intelence, coreg I&O's: 1590/303 Skin: no breakdown, no edema Estimated Nutrition Needs: Increased due to ESRD on HD Assessment: Chart reviewed, events noted. Pt seen for follow-up. Pt was preparing to D/C home at time of visit, so RD was unable to interview pt. RD internal affairs commander provided pt with written diet education. Pt and pt's stated he does not want to follow the renal diet at home, but RD internal affairs commander left written diet education with the pt's . Pt is being d/c'd and leaving for home today. RD will remain available. Dx: Inadequate protein-energy intake r/t increased protein-energy needs on HD, clinical condition AEB liquid diet with diet soda and water only. -RESOLVED Intervention: 1. Renal diet 2. Renal diet education Monitoring, Evaluation and Goals: 1. Oral intake; tolerate >50-75% of meals once diet advances -UNMEASURED 2. Improve labs; glucose, electrolytes, BUN, creat, GFR -NOT MET 3. Weight; prevent weight loss -IN PROGRESS Recommendations: 1. Continue to follow renal and consistent carbohydrate diet at home. Encourage compliance of diet Consult RD with any further nutritional needs. [facility] Nutrition Therapy DATE: 12/04/16 Patient: RACH HERNANDEZ Physician: CHRISSY Address: [address] [place] [address] RD Room/Bed: [address] [place] [address], Zip: [place] [address] Admit Date: 11/29/16 Date of : 58 Height: 6 1 Weight: 172 78.2 Respectfully, EVELIA LE, landscape maintenance internship Airam Toth MS, RD, LD Food and Nutritional Services [facility] cc: client file
--- NOTE | ~2016-11-29 | US6 ---
[facility] A Service of [facility] RADIOLOGY TEXT RESULTS PATIENT: RACH HERNANDEZ LOCATION: [address] : [birth year] UNIT #: [id number] AGE: [address]: Jenae Sewell MD SEX: M ORDER DR: [id number] [place], [place] [address] [id number] I MR#: [id number] Acc #: [id number] NAME: RACH HERNANDEZ : 1960 SEX: M STUDY DATE/TIME: 11/30/2016 16:55 UNIT: [id number] ROOM: [facility] STUDY DESCRIPTION: US Abdominal Limited Attending Physician: Jenae Sewell M.D. Ordering Physician: Letty Flores M.D. Primary Care Physician: Primary Care Physician No MEDICAL IMAGING REPORT This report is preliminary unless electronic signature is present EXAM Abdominal ultrasound INDICATION Right upper quadrant abdominal pain for 6 weeks. [address]ole[address]iasis. COMPARISON CT abdomen and pelvis 11/29/2016. FINDINGS The pancreas is normal in appearance. The echogenicity and echotexture of the liver is within normal limits. No hepatic mass. The intrahepatic bile ducts are normal in caliber. The common duct is normal in size measuring 4 mm at the jhonathan hepatis. There are a few gallstones in the gallbladder. No gallbladder distension or gallbladder wall thickening. The [place] kidney is not identified (prior CT scan show a severely atrophic [place] kidney). No ascites. IMPRESSION Cholelithiasis. Dictated by... Tam Hernandez M.D. THIS IS AN ELECTRONICALLY VERIFIED REPORT [facility] A Service [facility] RADIOLOGY TEXT RESULTS PATIENT: RACH HERNANDEZ LOCATION: [address] : [birth year] UNIT #: [id number] AGE: [address]: Jenae Sewell MD SEX: M ORDER DR: Tam Hernandez M.D. at 12/01/2016 10:49 AM PRIYANK/nat TD: 12/01/2016 08:53 JOB #: [id number] MEDICAL IMAGING REPORT Page 1 of 1 COPY
--- NOTE | ~2016-11-29 | A ---
[facility] Nutrition Therapy DATE: 11/30/16 Patient: RACH HERNANDEZ Physician: CHRISSY Address: [address] [place] [address] RD Room/Bed: [address], Zip: [place] [address] Admit Date: 11/29/16 Date of : 58 Height: 6 1 Weight: 110 50 NUTRITIONAL ASSESSMENT: REASON: Weight loss, poor appetite 56 yo male admitted for anemia, n/v/d PMH: ESRD on HD, DM, CAD, HTN, HLD, HIV, seizure Anthropometrics: Ht: 6'1" Wt: 72.7 kg (dry weight per pt report) BMI: 21.1 IBW: 83.6 kg, 87% IBW Labs: Na+ 128 Cl- 94 Gluc 618 BUN 64 Creat 6.4 Ca++ 8.1 Accuchecks 100-380 GFR 10.2 Meds: Insulin drip, vitamin D, novolin, lipitor, levemir, D5%, protonix, renegal, zofran, novolog, nephrocaps, vitamin C I/O & Bowel function: , last BM 11/28 Skin Integrity: no breakdown noted, no edema Estimated Nutrition Needs: Increased due to ESRD on HD Diet: Clear liquids (H20 and diet soda only) Assessment: Chart reviewed, events noted. RD was originally seeing the pt for low BMI, however, upon interviewing the pt RD realized the pt's weight in [facility] of 50 kg is incorrect. Per the pt's report, his dry weight is ~160#. Pt reports that he weighed ~168# last wednesday; however, he has not eaten anything since then and has likely lost weight. Pt and his report that he has been losing weight with decline in appetite since he started HD in August, and they are unsure of exact amount of wt loss. Pt has been prescribed Megace, but he believes that the current dose is not helping his appetite. Pt's states that he was previous on a higher dose of Megace, which seemed to work for him. Pt does have an outpatient RD at the dialysis center, and the pt and his did not have any questions regarding a renal diet. Pt has been consuming Ensure "milkshakes" that his makes for him. RD suggested Nepro supplements, since it is formulated for people receiving HD. Pt is agreeable to trying this with ice cream. RD will order once the pt's diet advances. Dx: Inadequate protein-energy intake RT increased protein- energy needs on HD, clinical condition AEB clear liquid diet with diet soda and water only. Intervention: 1. Advance to CC/ renal diet as tolerated 2. Nepro BID once diet advances [facility] Nutrition Therapy DATE: 11/30/16 Patient: RACH HERNANDEZ Physician: CHRISSY Address: [address] [place] [address] NATHEN Room/Bed: [address], Zip: [place] [address] Admit Date: 11/29/16 Date of : 58 Height: 6 1 Weight: 110 50 Monitoring, Evaluation and Goals: 1. Oral intake; tolerate >50-75% of meals once diet advances 2. Improve labs; glucose, electrolytes, BUN, Creat, GFR 3. Weight; prevent weight loss Recommendations: 1. Once medically feasible, advance the pt to a consistent carbohydrate/ renal diet as tolerated. 2. Please order Nepro BID (one butter pecan and one vanilla) with breakfast and dinner once the pt's diet is advanced beyond clear liquids. 3. Pt's was inquiring about an increase in the pt's dose of Megace, as this previously helped with his appetite and nutritional intake. RD will relay this to RN. Pt is at mild-moderate nutritional risk. RD will follow hospital course per protocol. Respectfully, BARRETT JOHNSTON RD, LD [facility] cc: client file
--- NOTE | ~2016-11-29 | CO ---
Unit #: [id number] #: [id number] Patient: RACH HERNANDEZ [id number] [address] [place], [place] [address] [id number] MR#: [id number] NAME: RACH HERNANDEZ. ROOM: 566 Age: 56 Sex: M Admission Date: 11/29/2016 : 1960 Attending Physician: Jenae Sewell M.D. Primary Care Physician: Primary Care Physician No CONSULTATION REPORT HISTORY OF PRESENT ILLNESS This is a 56-year-old white male, who has been seen by Dr. Mabry in the past, where he had a hospitalization at [facility] in 08/2016, where he was admitted for anemia. Echocardiogram during that time found the patient to have what they thought was severe mitral regurgitation. As a part or cardiac workup, he underwent cardiac catheterization, where he was found to have 60% stenosis in the proximal LAD and 80% stenosis in the distal LAD. The mid circumflex artery was small vessel with 80% stenosis. Right coronary artery had 50% followed by 80% stenosis in mid vessel. There was severe mitral regurgitation per cardiac catheterization. Cardiovascular Surgery was consulted, but the patient underwent transesophageal echocardiogram, where his mitral regurgitation was considered to be moderate. No heart surgery was needed. He underwent angioplasty with stent placement to the distal LAD in 08/2016 and had staged angioplasty to the right coronary artery in 10/2016. 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 He has multiple family members, who has had the same disease. He had a renal transplant in 2004. He has had several hospitalizations for anemia in the past and underwent multiple scopes, which he says has been negative. He has been on aspirin and Brilinta after his drug-eluting stents were placed in 08/2016. He has chest pain on occasion, which he describes as a tightness with no associated shortness of breath. A week ago, the patient developed profound weakness with nausea and shortness of breath. He has been unable to eat or drink and has lost at least 18 pounds. He had an episode where he had passed out for least 2-1/2 hours. When he awaken, he took his blood sugar which he states was 45. He reports dyspnea that is worse on exertion. He has no paroxysmal nocturnal dyspnea, orthopnea, or leg edema. He went to [facility], where he was found to have a hemoglobin of 4.8. He was transfused 1 unit of packed red blood cells. His hemoglobin today is 7.0 and is currently receiving another unit of packed red blood cells. PAST MEDICAL HISTORY 1. Transesophageal echocardiogram on 08/26/2016 at [facility] per Dr. Santos, which showed moderate concentric left ventricular hypertrophy. Ejection fraction of 60%. Mildly dilated left atrium. No left atrium or left atrial appendage thrombus. Moderate mitral regurgitation and mild tricuspid regurgitation. 2. Cardiac catheterization on 08/25/[address] Quiroz at [facility], which showed LAD stenosis of 60% proximally. Distal LAD 80%. Left circumflex mid 80%, this was a small vessel. Right coronary artery Unit #: [id number] #: [id number] Patient: RACH HERNANDEZ with two tandem 50% lesions followed by an 80% mid vessel stenosis. Pulmonary artery pressures 45/26 with mean of 37 mmHg. Severe mitral regurgitation. 3. PCI with drug-eluting stent to the distal LAD on 08/27/[address] Quiroz at [facility]. 4. Angioplasty with drug-eluting stent to the proximal LAD on 10/12/[address] Mabry at [facility]. 5. Hypertension. 6. Hyperlipidemia. 7. Diabetes mellitus, type 2. 8. 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 9. HIV positive. 10. History of renal transplant in 2004. 11. Chronic anemia. 12. Active smoker. PAST SURGICAL HISTORY 1. EGD in 06/2015 shows mild gastritis. Colonoscopy normal done at [facility] in [place]. 2. Bilateral hip surgery. 3. AV fistula for hemodialysis. SOCIAL HISTORY The patient is . He states he is very active. He smokes one pack of cigarettes every other day. Drinks alcohol on occasion. FAMILY HISTORY Mother is currently living well at age 82, but has had a history of myocardial infarction in the past. Has a brother with a permanent pacemaker. ALLERGIES Penicillin and sulfa. HOME MEDICATIONS Humalog per sliding scale t.i.d., etravirine 200 mg b.i.d., Lantus 20 units q.h.s., lidocaine 2 patch topically daily, ascorbic acid 500 mg daily, vitamin D2 50,000 units weekly, Zyrtec 10 mg daily, abacavir sulfate 300 mg b.i.d., aspirin 80 mg daily, buspirone HCL 7.5 mg b.i.d., calcitriol 0.25 mcg daily, carvedilol 25 mg b.i.d., Benadryl 50 mg q.h.s., Neurontin 100 mg q.h.s., lamivudine 100 mg daily, mycophenolate sodium 360 mg b.i.d., Crestor 20 mg q.h.s., Renagel 1600 mg b.i.d., Norvasc 10 mg daily, Nephrocaps one cap daily. REVIEW OF SYSTEMS CONSTITUTIONAL: Positive for weakness and fatigue. Reports 18-pound weight loss. HEENT: No headache, hearing, or vision changes, or difficulty with swallowing. Negative for dizziness. CARDIOVASCULAR: Has chest pain as described in HPI. Denies palpitations. No paroxysmal nocturnal dyspnea or orthopnea. Reports a syncopal episode with loss of consciousness. RESPIRATORY: Reports dyspnea, that occurs worse on exertion. Has no cough or hemoptysis. GASTROINTESTINAL: Positive for nausea, but no abdominal pain, hematochezia, hematemesis, or melena. EXTREMITIES: Negative for lower extremity edema. Unit #: [id number] #: [id number] Patient: RACH HERNANDEZ PHYSICAL EXAMINATION VITAL SIGNS: Blood pressure 160/80, heart rate 95, temperature 98.3, BMI of 14. GENERAL: This is a 56-year-old thin framed, male, who is in no acute respiratory distress. NEUROLOGIC: He is awake, alert, and oriented. There are no focal weaknesses. NECK: Trachea is midline. No thyromegaly. No lymphadenopathy. No jugular venous distention. HEART: S1 and S2. Heart sounds are normal. No murmurs, rubs, or clicks. Regular rate and rhythm. LUNGS: Diminished without rales, rhonchi, or wheeze. ABDOMEN: Soft and nontender with bowel sounds present. No organomegaly. EXTREMITIES: Pedal pulses are palpable without leg edema. SKIN: Warm and dry. DIAGNOSTIC STUDIES LABORATORY RESULTS: Hemoglobin 7.0, hematocrit is 20.9, platelet count 256, white count 8.0. Sodium 128, potassium 4.8, BUN 64, creatinine 6.4, glucose 618, magnesium 1.8. Troponin less than 0.03 x2. IMAGING STUDIES: Chest x-ray shows no active disease. Ultrasound of the abdomen shows cholelithiasis. CARDIOVASCULAR STUDIES: EKG shows sinus tachycardia, rate of 107 beats per minute with left ventricular hypertrophy. IMPRESSION 1. Severe anemia. 2. Coronary artery disease, status post PCI and stent to the LAD in 08/2016. 3. PCI with drug-eluting stent to the right coronary artery on 10/12/2016. 4. Hypertension. 5. Hyperlipidemia. 6. Diabetes mellitus, type 2. 7. 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 PLAN 1. Cardiology was consulted given the patient's recent drug-eluting stent that was placed in 08/2016 and 10/2016. He has been on aspirin and Brilinta which is on hold, because of severe anemia with his hemoglobin of 4.8. He has received at least 2 units of packed red blood cells. The patient needs to be on anti-platelet therapy, because of the drug-eluting stent in 08/2016 and 10/2016 to prevent stent thrombosis. 2. Past esophagogastroduodenoscopy and colonoscopies have been unremarkable per patient and history. 3. Consider changing to Plavix if hemoglobin is stable in the a.m. instead of Brilinta. 4. Questionable etiology of the patient's anemia. Hematology is following. 5. We will follow the patient with you. Thank you for allowing us to assist with this patient's care. Dictated by... Santosh Conroy A.P.R.N. AEP/emelil Unit #: [id number] #: [id number] Patient: RACH HERNANDEZ TD: 12/02/2016 12:50 JOB #: [id number] CC: Yogi Mabry M.D. CONSULTATION REPORT Page 1 of 1 X Santosh Conroy APRN X CONSULTATION REPORT
[2016-11-29] MEDS ORDERED: HUMALOG100 UNIT/1 (19:21)
[2016-11-29] MEDS ORDERED: INTELENCE200 MG PO (19:23)
[2016-11-29] MEDS ORDERED: LANTUS100 U/ML SUBQ (19:24)
[2016-11-29] MEDS ORDERED: LIDODERM1 EACH TOP (19:25)
[2016-11-29] MEDS ORDERED: RENAGEL800 MG PO ×2 (19:28→19:41)
[2016-11-29] MEDS ORDERED: VITAMIN C500 M7 PO (19:29)
[2016-11-29] MEDS ORDERED: VITAMIN D250000 UNIT PO (19:30)
[2016-11-29] MEDS ORDERED: ABACAVIR300 MG PO (19:31)
[2016-11-29] MEDS ORDERED: ZYRTEC10 M2 PO (19:31)
[2016-11-29] MEDS ORDERED: ASPIRIN81 MG PO (19:32)
[2016-11-29] MEDS ORDERED: BUSPIRONE HCL7.5 MG PO (19:33)
[2016-11-29] MEDS ORDERED: CALCITRIOL0.25 MC1 PO (19:34)
[2016-11-29] MEDS ORDERED: CARVEDILOL25 MG PO (19:35)
[2016-11-29] MEDS ORDERED: BENADRYL25 M3 PO (19:36)
[2016-11-29] MEDS ORDERED: NEURONTIN100 MG PO (19:37)
[2016-11-29] MEDS ORDERED: EPIVIR HBV100 M1 PO (19:39)
[2016-11-29] MEDS ORDERED: MYCOPHENOLIC A360 MG PO (19:40)
[2016-11-29] MEDS ORDERED: CRESTOR10 MG PO (19:40)
[2016-11-29] MEDS ORDERED: NORVASC10 MG PO (19:43)
[2016-11-29] MEDS ORDERED: NEPHROCAPS QT1 EACH PO (19:46)
[2016-11-29 21:44] LABS: %MB 2.3 % (0.0-4.0); MB 2.9 ng/ml
[2016-11-29 22:05] LABS: HEMOGLOBIN 6.5 gm/dL (13.0-16.0)
[2016-11-29 22:19] LABS: PHOSPHOROUS 3.4 mg/dL (2.5-4.6)
[2016-11-30 01:40] LABS: BUN/CREATININE RATIO 9.83; CALCIUM SERUM 7.7 mg/dL (8.4-10.2); CREATININE SERUM 6.2 mg/dL (0.6-1.4); GLOM FILT RATE Estimated 10.6 mL/min (>60)
[2016-11-30 01:45] LABS: POTASSIUM 5.5 mmol/L (3.5-5.1)
[2016-11-30 01:58] LABS: %MB 2.5 % (0.0-4.0); MB 2.7 ng/ml
[2016-11-30 03:26] LABS: BASOPHIL% 0.5 % (0-2.5); EOSINOPHIL% 0.1 % (0.0-7.0); HEMATOCRIT 19.4 % (38.0-50.0); LYMPHOCYTE# 0.9 X10e3 (1.0-3.5); LYMPHOCYTE% 11.2 % (17.0-45.0); MEAN CELL VOLUME 85.6 FL (83-96); MEAN CORPUSCULAR HEMOGLOBIN 27.4 PG (28-34); MEAN PLATELET VOLUME 8.8 FL (6.5-11.5); MONOCYTE# 0.4 X10e3 (0-1.0); MONOCYTE% 4.9 % (3.0-12.0); NEUTROPHIL# 6.7 X10e3 (1.5-7.1); NEUTROPHIL% 83.3 % (40-75); PLATELET COUNT 256 X10e3 (140-420); RED BLOOD COUNT 2.27 X10e (3.90-5.60); RED CELL DISTRIBUTION WIDTH 16.6 % (11.0-15.5)
[2016-11-30 03:27] LABS: HEMOGLOBIN 6.2 gm/dL (13.0-16.0)
[2016-11-30 03:28] LABS: DIFF IND YES
[2016-11-30 03:33] LABS: INR 1.1; PROTHROMBIN TIME (PATIENT) 11.4 SECONDS (10.0-11.7)
[2016-11-30 03:42] LABS: ALBUMIN SERUM 3.1 g/dL (3.5-5.0); ALKALINE PHOSPHATASE 54 U/L (32-92); ALT (SGPT) 10 U/L (10-40); AST (SGOT) 17 U/L (10-42); BILIRUBIN,TOTAL <0.1 mg/dL (0.2-2.0); BLOOD UREA NITROGEN 64 mg/dL (9-23); CALCIUM SERUM 8.1 mg/dL (8.4-10.2); CARBON DIOXIDE 24 mmol/L (22-31); CHLORIDE 94 mmol/L (100-111); CREATININE SERUM 6.4 mg/dL (0.6-1.4); GLOM FILT RATE Estimated 10.2 mL/min (>60); MAGNESIUM 1.8 mg/dL (1.6-3.0); PHOSPHOROUS 3.6 mg/dL (2.5-4.6); POTASSIUM 4.8 mmol/L (3.5-5.1); SODIUM 128 mmol/L (135-145)
[2016-11-30 03:43] LABS: GLUCOSE FASTING 618 mg/dL (70-110)
[2016-11-30 03:46] LABS: ANISOCYTOSIS SL; PLATELET ESTIMATE NORMAL (NORMAL)
[2016-11-30 03:47] LABS: HYPOCHROMIA MOD
[2016-11-30 04:12] LABS: AMYLASE 44 U/L (0-46); LIPASE 72 U/L (22-51)
[2016-11-30 08:29] LABS: HEMOGLOBIN 7.7 gm/dL (13.0-16.0)
[2016-11-30] MEDS ORDERED: BRILINTA90 MG PO (14:39)
[2016-11-30 15:16] LABS: HEMATOCRIT 20.9 % (38.0-50.0)
[2016-11-30 20:24] LABS: HEMATOCRIT 26.1 % (38.0-50.0); HEMOGLOBIN 8.4 gm/dL (13.0-16.0)
[2016-12-01 04:17] LABS: BASOPHIL# 0.1 X10e3 (0-0.3); BASOPHIL% 0.6 % (0-2.5); EOSINOPHIL# 0.2 X10e3 (0-0.7); EOSINOPHIL% 2.7 % (0.0-7.0); HEMOGLOBIN 7.3 gm/dL (13.0-16.0); LYMPHOCYTE# 2.2 X10e3 (1.0-3.5); LYMPHOCYTE% 25.3 % (17.0-45.0); MEAN CELL VOLUME 84.6 FL (83-96); MEAN CORPUSCULAR HEMOGLOBIN 28.2 PG (28-34); MEAN CORPUSCULAR HGB CONC 33.3 g/dL (30-36); MEAN PLATELET VOLUME 8.5 FL (6.5-11.5); MONOCYTE# 0.9 X10e3 (0-1.0); MONOCYTE% 9.9 % (3.0-12.0); NEUTROPHIL# 5.4 X10e3 (1.5-7.1); NEUTROPHIL% 61.5 % (40-75); PLATELET COUNT 240 X10e3 (140-420); RED CELL DISTRIBUTION WIDTH 16.4 % (11.0-15.5); WHITE BLOOD COUNT 8.8 X10e3 (4.0-10.5)
[2016-12-01 04:18] LABS: DIFF IND YES
[2016-12-01 04:47] LABS: ALBUMIN SERUM 2.9 g/dL (3.5-5.0); BILIRUBIN,TOTAL 0.3 mg/dL (0.2-2.0); CALCIUM SERUM 8.3 mg/dL (8.4-10.2); CREATININE SERUM 5.9 mg/dL (0.6-1.4); GLOM FILT RATE Estimated 11.3 mL/min (>60); POTASSIUM 3.9 mmol/L (3.5-5.1); PROTEIN TOTAL SERUM 5.3 g/dL (6.0-8.3)
[2016-12-01 04:48] LABS: PLATELET ESTIMATE NORMAL (NORMAL)
[2016-12-01 04:49] LABS: ANISOCYTOSIS SL; HYPOCHROMIA SL; POLYCHROMASIA SL
[2016-12-01 05:00] LABS: FERRITIN 249 ng/mL (24-336)
[2016-12-01 18:37] LABS: HEMATOCRIT 25.4 % (38.0-50.0); HEMOGLOBIN 8.2 gm/dL (13.0-16.0); MEAN CORPUSCULAR HEMOGLOBIN 28.3 PG (28-34); MEAN CORPUSCULAR HGB CONC 32.3 g/dL (30-36); MEAN PLATELET VOLUME 8.3 FL (6.5-11.5); RED BLOOD COUNT 2.89 X10e (3.90-5.60); RED CELL DISTRIBUTION WIDTH 16.5 % (11.0-15.5); WHITE BLOOD COUNT 9.6 X10e3 (4.0-10.5)
[2016-12-01 18:38] LABS: MEAN CELL VOLUME 87.6 FL (83-96)
[2016-12-02 00:22] LABS: HEMATOCRIT 21.7 % (38.0-50.0); HEMOGLOBIN 7.1 gm/dL (13.0-16.0); MEAN CELL VOLUME 85.9 FL (83-96); MEAN CORPUSCULAR HEMOGLOBIN 28.3 PG (28-34); MEAN CORPUSCULAR HGB CONC 32.9 g/dL (30-36); MEAN PLATELET VOLUME 8.1 FL (6.5-11.5); RED BLOOD COUNT 2.52 X10e (3.90-5.60); RED CELL DISTRIBUTION WIDTH 16.4 % (11.0-15.5); WHITE BLOOD COUNT 7.5 X10e3 (4.0-10.5)
[2016-12-02 04:12] LABS: BASOPHIL% 0.6 % (0-2.5); EOSINOPHIL# 0.2 X10e3 (0-0.7); EOSINOPHIL% 2.8 % (0.0-7.0); HEMATOCRIT 21.3 % (38.0-50.0); HEMOGLOBIN 7.1 gm/dL (13.0-16.0); LYMPHOCYTE# 1.6 X10e3 (1.0-3.5); LYMPHOCYTE% 23.2 % (17.0-45.0); MEAN CELL VOLUME 84.9 FL (83-96); MEAN CORPUSCULAR HEMOGLOBIN 28.3 PG (28-34); MEAN CORPUSCULAR HGB CONC 33.3 g/dL (30-36); MEAN PLATELET VOLUME 8.1 FL (6.5-11.5); MONOCYTE# 0.8 X10e3 (0-1.0); MONOCYTE% 11.3 % (3.0-12.0); NEUTROPHIL# 4.3 X10e3 (1.5-7.1); NEUTROPHIL% 62.1 % (40-75); PLATELET COUNT 230 X10e3 (140-420); RED BLOOD COUNT 2.51 X10e (3.90-5.60); RED CELL DISTRIBUTION WIDTH 16.2 % (11.0-15.5); WHITE BLOOD COUNT 6.9 X10e3 (4.0-10.5)
[2016-12-02 04:13] LABS: DIFF IND NO
[2016-12-02 04:32] LABS: ALBUMIN SERUM 2.8 g/dL (3.5-5.0); ALKALINE PHOSPHATASE 52 U/L (32-92); ALT (SGPT) 8 U/L (10-40); AST (SGOT) 12 U/L (10-42); BLOOD UREA NITROGEN 45 mg/dL (9-23); BUN/CREATININE RATIO 7.37; CALCIUM SERUM 7.9 mg/dL (8.4-10.2); CARBON DIOXIDE 25 mmol/L (22-31); CHLORIDE 102 mmol/L (100-111); CREATININE SERUM 6.1 mg/dL (0.6-1.4); GLOM FILT RATE Estimated 10.8 mL/min (>60); GLUCOSE FASTING 114 mg/dL (70-110); POTASSIUM 3.8 mmol/L (3.5-5.1); PROTEIN TOTAL SERUM 5.6 g/dL (6.0-8.3); SODIUM 133 mmol/L (135-145)
[2016-12-02 04:33] LABS: BILIRUBIN,TOTAL <0.1 mg/dL (0.2-2.0)
[2016-12-02 10:35] LABS: HIV1 LOG COPIES/ML <1.30 (<1.30); HIV1COPIES/ML <20 (<20)
[2016-12-02 16:01] LABS: HEMATOCRIT 23.2 % (38.0-50.0); HEMOGLOBIN 7.6 gm/dL (13.0-16.0)
[2016-12-03 10:21] LABS: EOSINOPHIL# 0.6 X10e3 (0-0.7); HEMOGLOBIN 8.1 gm/dL (13.0-16.0); LYMPHOCYTE# 0.2 X10e3 (1.0-3.5); LYMPHOCYTE% 2.3 % (17.0-45.0); MEAN CELL VOLUME 87.7 FL (83-96); MEAN CORPUSCULAR HEMOGLOBIN 28.3 PG (28-34); MEAN CORPUSCULAR HGB CONC 32.3 g/dL (30-36); MONOCYTE# 0.2 X10e3 (0-1.0); MONOCYTE% 2.3 % (3.0-12.0); NEUTROPHIL# 7.8 X10e3 (1.5-7.1); NEUTROPHIL% 88.4 % (40-75); PLATELET COUNT 305 X10e3 (140-420); RED BLOOD COUNT 2.85 X10e (3.90-5.60); RED CELL DISTRIBUTION WIDTH 16.6 % (11.0-15.5); WHITE BLOOD COUNT 8.8 X10e3 (4.0-10.5)
[2016-12-03 10:24] LABS: DIFF IND NO
[2016-12-03 10:49] LABS: ALBUMIN SERUM 3.3 g/dL (3.5-5.0); BILIRUBIN,TOTAL 1.1 mg/dL (0.2-2.0); BUN/CREATININE RATIO 6.79; CALCIUM SERUM 8.4 mg/dL (8.4-10.2); CREATININE SERUM 7.8 mg/dL (0.6-1.4); MAGNESIUM 2.7 mg/dL (1.6-3.0); PHOSPHOROUS 5.2 mg/dL (2.5-4.6); POTASSIUM 4.1 mmol/L (3.5-5.1); PROTEIN TOTAL SERUM 6.3 g/dL (6.0-8.3)
[2016-12-04 11:19] LABS: HEMATOCRIT 25.6 % (38.0-50.0); HEMOGLOBIN 8.2 gm/dL (13.0-16.0); MEAN CELL VOLUME 87.9 FL (83-96); MEAN CORPUSCULAR HEMOGLOBIN 28.1 PG (28-34); MEAN PLATELET VOLUME 8.1 FL (6.5-11.5); RED BLOOD COUNT 2.91 X10e (3.90-5.60); RED CELL DISTRIBUTION WIDTH 16.8 % (11.0-15.5); WHITE BLOOD COUNT 7.1 X10e3 (4.0-10.5)
[2016-12-04 11:23] LABS: BUN/CREATININE RATIO 5.29; CALCIUM SERUM 8.2 mg/dL (8.4-10.2); CREATININE SERUM 6.8 mg/dL (0.6-1.4); GLOM FILT RATE Estimated 9.5 mL/min (>60); MAGNESIUM 2.4 mg/dL (1.6-3.0); PHOSPHOROUS 4.4 mg/dL (2.5-4.6)
[2016-12-04] MEDS ORDERED: PROTONIX PO (12:41)
[2016-12-04] MEDS ORDERED: CLOPIDOGREL75 MG PO (12:41)
[2016-12-22 14:12] LABS: CD4 % (PNL) SEE REF
== END 2016-12-04 18:15 | disposition home or self-care (01) | DRG 811 ==
LOC: C5C 14:45 → CICCU3 14:45 → UNDOADMIN 18:44 → CICCU3 18:44 → C5C 12-02 14:28
PROVIDERS: Family Medicine; Internal Medicine; Internal Medicine Hematology; Psychiatry & Neurology Psychiatry; Surgery
PROC: 30233N1 Transfusion of Nonautologous Red Blood Cells into Peripheral Vein, Percutaneous Approach (ICD-10-PCS; principal; 2016-11-29)
PROC: 0DJD8ZZ Inspection of Lower Intestinal Tract, Via Natural or Artificial Opening Endoscopic (ICD-10-PCS; 2016-12-03)
PROC: 0DJ08ZZ Inspection of Upper Intestinal Tract, Via Natural or Artificial Opening Endoscopic (ICD-10-PCS; 2016-12-03 12:30)
DX: D64.9 Anemia, unspecified (principal); N18.6 End stage renal disease; T86.12 Kidney transplant failure; I12.0 Hypertensive chronic kidney disease with stage 5 chronic kidney disease or end stage renal disease; E11.22 Type 2 diabetes mellitus with diabetic chronic kidney disease; E87.1 Hypo-osmolality and hyponatremia; E44.1 Mild protein-calorie malnutrition; Z88.0 Allergy status to penicillin; Z88.2 Allergy status to sulfonamides; Z99.2 Dependence on renal dialysis; M19.90 Unspecified osteoarthritis, unspecified site; I25.10 Atherosclerotic heart disease of native coronary artery without angina pectoris; Z95.5 Presence of coronary angioplasty implant and graft; F17.210 Nicotine dependence, cigarettes, uncomplicated; Z79.82 Long term (current) use of aspirin; Z79.4 Long term (current) use of insulin; G40.909 Epilepsy, unspecified, not intractable, without status epilepticus; Z21 Asymptomatic human immunodeficiency virus [HIV] infection status; Z83.3 Family history of diabetes mellitus; Z96.643 Presence of artificial hip joint, bilateral; K44.9 Diaphragmatic hernia without obstruction or gangrene; K29.70 Gastritis, unspecified, without bleeding
CPT/HCPCS: 71010; 76705; 80048; 80053; 82150; 82550; 82553; 82607; 82728; 82947; 83036; 83540; 83550; 83690; 83735; 84100; 84484; 85014; 85018; 85025; 85027; 85610; 86361; 86850; 86900; 86901; 86923; 87340; 87536; 93005; 94760; C9113; G0103; J0885; J1815; J2270; J2405; J2765; J2916; J7518; P9016